=== PATIENT | male | born 1955 | race Caucasian/White ===

== ENCOUNTER 2018-06-27 15:42 | Outpatient (CLI) | payer BC ==
--- NOTE | 2018-06-27 17:06 | RAD ---
2 VIEWS RIGHT HIP: Date: 06/27/18 COMPARISON: None. HISTORY: Right hip pain for a week. FINDINGS: Two views of the right hip show no evidence of acute fracture or dislocation. No degenerative changes are seen. IMPRESSION: Unremarkable exam. POS: [facility]
== END 2018-06-27 15:43 | disposition home or self-care (01) ==
LOC: SCSRAD 15:42
PROVIDERS: ATTEND Family Medicine
DX: M25.551 Pain in right hip (principal)

== ENCOUNTER 2021-12-19 17:51 | Inpatient (IN) | payer MEDICARE, BC ==
[~2021-12-19 17:51] MED LIST: Fentanyl 250 MCG/5 ML VIAL ONE
[2021-12-19] MEDS ORDERED: Sodium Chloride 0.9% 0 ML ONE (18:14)
[2021-12-19] MEDS ORDERED: Piperacillin/Tazobactam 3.375 GM VIAL ONE (18:14)
[2021-12-19] MEDS ORDERED: PROPOFOL 200 MG/20 ML VIAL ONE (18:22)
[2021-12-19] MEDS ORDERED: Rocuronium Bromide 10 MG/ML (10ML VIAL) ONE (18:22)
[2021-12-19] MEDS ORDERED: Glycopyrrolate 0.2 MG/ML 5 ML SYRINGE ONE (18:22)
[2021-12-19] MEDS ORDERED: Lidocaine 1% PF 5 ML VIAL ONE (18:22)
[2021-12-19] MEDS ORDERED: Dexamethasone 20 MG/5 ML VIAL ONE (18:22)
[2021-12-19] MEDS ORDERED: Ondansetron PF 4 MG/2 ML Vial ONE (18:22)
[2021-12-19] MEDS ORDERED: Promethazine HCl 25 MG/ML VIAL IM PRN ×2 (18:45→18:46)
[2021-12-19] MEDS ORDERED: Ondansetron HCl/PF 4 MG/2 ML Vial IVP PRN (18:45)
[2021-12-19] MEDS ORDERED: HYDROmorphone 2 MG/ML VIAL SLOW IVP PRN (18:45)
[2021-12-19] MEDS ORDERED: Promethazine HCl 25 MG/ML VIAL IVPB PRN (18:45)
[2021-12-19] MEDS ORDERED: diphenhydrAMINE 50 MG/ML VIAL IM PRN (18:46)
[2021-12-19] MEDS ORDERED: diphenhydrAMINE 25 MG CAP PO PRN (18:46)
[2021-12-19] MEDS ORDERED: diphenhydrAMINE 50 MG/ML VIAL IVP PRN (18:46)
[2021-12-19] MEDS ORDERED: Ondansetron PF 4 MG/2 ML Vial IVP PRN ×2 (18:46→20:16)
[2021-12-19] MEDS ORDERED: Naloxone HCl 0.4 mg/ml Vial IV PRN (18:46)
[2021-12-19] MEDS ORDERED: Zolpidem Tartrate 5 MG TAB PO PRN (18:46)
[2021-12-19] MEDS ORDERED: fentaNYL Citrate/PF 2,000 MCG in Sodium Chloride 0.9% 60 ML IV PRN (18:46)
[2021-12-19] MEDS ORDERED: Communication Order-Pharmacy FS SCH (19:00)
[2021-12-19] MEDS ORDERED: hydrALAZINE 20 MG/ML VIAL SLOW IVP PRN (20:16)
[2021-12-19] MEDS ORDERED: Ketorolac Tromethamine 30 MG/ML VIAL IVP SCH (20:30)
[2021-12-19] MEDS ORDERED: Fentanyl 100 MCG/2 ML VIAL ONE (20:57)
[2021-12-19] MEDS ORDERED: Ketorolac Tromethamine 30 MG/ML VIAL ONE (21:19)
[2021-12-19 22:14] VITALS: BMI 29.7
[2021-12-19] MEDS: Enoxaparin Sodium 40 MG/0.4 ML SYRINGE SC SCH (22:28)
[2021-12-19] MEDS: Lactated Ringer's 1,000 ML IV SCH ×2 (22:28→22:36)
[2021-12-19] MEDS: Piperacillin/Tazobactam 3.375 GM in Sodium Chloride 0.9% 100 ML IVPB SCH (22:36)
[2021-12-19] MEDS: Ketorolac Tromethamine 30 MG/ML VIAL IVP SCH (23:13)
[2021-12-20] MEDS: Piperacillin/Tazobactam 3.375 GM in Sodium Chloride 0.9% 100 ML IVPB SCH ×3 (05:00→20:56)
[2021-12-20] MEDS: Ketorolac Tromethamine 30 MG/ML VIAL IVP SCH ×4 (05:00→23:33)
[2021-12-20 05:57] LABS: #Lymphocytes 0.4 thou/uL (1.20-3.40); #Monocytes 0.9 thou/uL (0.11-0.59); #Neutrophils 11.5 thou/uL (1.40-6.50); %Eosinophils 0.2 % (0.0-10.0); %Lymphocytes 3.1 % (21.0-51.0); %Monocytes 6.6 % (0.0-10.0); %Neutrophils 90.1 % (42.0-75.0); Hemoglobin 15.3 g/dL (14.0-18.0); Mean Corpuscular HGB CONC 32.4 g/dL (32.0-36.0); Mean Corpuscular Hemoglobin 29.2 pg (27.0-31.0); Mean Corpuscular Volume 90.4 fL (78.0-98.0); Mean Platelet Volume 6.7 fL (7.4-10.4); Platelet Count 365 thou/uL (130-400); RBC Distribution Width 12.2 % (11.5-14.5); Red Blood Cell (RBC) Count 5.23 mill/uL (4.70-6.10); White Blood Cell (WBC) Count 12.7 thou/uL (4.8-10.8)
[2021-12-20 06:16] LABS: ALT (SGPT) 18 U/L (8-55); AST (SGOT) 15 U/L (5-34); Albumin 3.3 g/dL (3.4-4.8); Alkaline Phosphatase 95 U/L (40-110); Anion Gap 14 mmol/L (10-20); BUN (Urea Nitrogen) 13 mg/dL (8.4-25.7); Bilirubin, Total 1.6 mg/dL (0.2-1.2); Calc. Creatinine Clearance 133 mL/min (70-130); Calcium 8.7 mg/dL (7.8-10.44); Carbon Dioxide 23 mmol/L (23-31); Chloride 99 mmol/L (98-107); Globulin 2.8 g/dL (2.4-3.5); Glucose 172 mg/dL (80-115); Potassium 4.3 mmol/L (3.5-5.1); Protein, Total 6.1 g/dL (5.8-8.1); Sodium 132 mmol/L (136-145)
[2021-12-20] MEDS: Pantoprazole 40 MG VIAL IVP SCH (08:15)
[2021-12-20] MEDS: Lactated Ringer's 1,000 ML IV SCH (10:21)
[2021-12-20] MEDS ORDERED: Sodium Chloride 0.9% 1,000 ML IV SCH (11:15)
[2021-12-20] MEDS: Sodium Chloride 0.9% 1,000 ML IV SCH ×2 (13:06→20:54)
[2021-12-20] MEDS: Enoxaparin Sodium 40 MG/0.4 ML SYRINGE SC SCH (20:54)
[2021-12-21] MEDS: Sodium Chloride 0.9% 1,000 ML IV SCH ×2 (04:14→08:34)
[2021-12-21 05:51] LABS: #Lymphocytes 0.7 thou/uL (1.20-3.40); #Monocytes 1.2 thou/uL (0.11-0.59); #Neutrophils 10.5 thou/uL (1.40-6.50); %Eosinophils 0.3 % (0.0-10.0); %Lymphocytes 5.9 % (21.0-51.0); %Monocytes 9.4 % (0.0-10.0); %Neutrophils 84.4 % (42.0-75.0); Hemoglobin 12.3 g/dL (14.0-18.0); Mean Corpuscular HGB CONC 32.6 g/dL (32.0-36.0); Mean Corpuscular Hemoglobin 29.6 pg (27.0-31.0); Mean Corpuscular Volume 90.7 fL (78.0-98.0); Mean Platelet Volume 6.5 fL (7.4-10.4); Platelet Count 332 thou/uL (130-400); RBC Distribution Width 12.1 % (11.5-14.5); Red Blood Cell (RBC) Count 4.14 mill/uL (4.70-6.10); White Blood Cell (WBC) Count 12.5 thou/uL (4.8-10.8)
[2021-12-21 06:19] LABS: ALT (SGPT) 15 U/L (8-55); AST (SGOT) 14 U/L (5-34); Albumin 3.2 g/dL (3.4-4.8); Alkaline Phosphatase 76 U/L (40-110); Anion Gap 12 mmol/L (10-20); BUN (Urea Nitrogen) 15 mg/dL (8.4-25.7); Bilirubin, Total 1.3 mg/dL (0.2-1.2); Calc. Creatinine Clearance 130 mL/min (70-130); Calcium 8.7 mg/dL (7.8-10.44); Carbon Dioxide 25 mmol/L (23-31); Chloride 103 mmol/L (98-107); Globulin 2.6 g/dL (2.4-3.5); Glucose 124 mg/dL (80-115); Potassium 3.5 mmol/L (3.5-5.1); Protein, Total 5.8 g/dL (5.8-8.1); Sodium 136 mmol/L (136-145)
[2021-12-21] MEDS: Ketorolac Tromethamine 30 MG/ML VIAL IVP SCH ×3 (06:35→17:18)
[2021-12-21] MEDS: Piperacillin/Tazobactam 3.375 GM in Sodium Chloride 0.9% 100 ML IVPB SCH ×3 (06:35→20:50)
[2021-12-21] MEDS: Pantoprazole 40 MG VIAL IVP SCH (08:32)
[2021-12-21] MEDS: Potassium Chloride 20 MEQ in Lactated Ringer's 1,000 ML IV SCH (11:46)
[2021-12-21] MEDS: Enoxaparin Sodium 40 MG/0.4 ML SYRINGE SC SCH (20:48)
[2021-12-22] MEDS: Ketorolac Tromethamine 30 MG/ML VIAL IVP SCH ×5 (00:13→23:20)
[2021-12-22] MEDS: Potassium Chloride 20 MEQ in Lactated Ringer's 1,000 ML IV SCH ×3 (01:28→10:04)
[2021-12-22] MEDS: Piperacillin/Tazobactam 3.375 GM in Sodium Chloride 0.9% 100 ML IVPB SCH ×3 (05:30→20:59)
[2021-12-22] MEDS: Pantoprazole 40 MG VIAL IVP SCH (08:29)
[2021-12-22] MEDS: Enoxaparin Sodium 40 MG/0.4 ML SYRINGE SC SCH (19:57)
[2021-12-23] MEDS: Potassium Chloride 20 MEQ in Lactated Ringer's 1,000 ML IV SCH ×2 (04:08→19:34)
[2021-12-23] MEDS: Ketorolac Tromethamine 30 MG/ML VIAL IVP SCH ×2 (06:07→11:56)
[2021-12-23] MEDS: Piperacillin/Tazobactam 3.375 GM in Sodium Chloride 0.9% 100 ML IVPB SCH ×3 (06:08→21:01)
[2021-12-23] MEDS: Pantoprazole 40 MG VIAL IVP SCH (08:39)
[2021-12-23] MEDS ORDERED: Lidocaine 1% w/Epinephrine 1:200K 30 ML VIAL FS SCH (10:45)
[2021-12-23] MEDS ORDERED: Bupivacaine 0.25% HCL 30 ML VIAL FS SCH (10:45)
[2021-12-23] MEDS ORDERED: Ibuprofen 600 MG TAB PO PRN (15:11)
[2021-12-23] MEDS ORDERED: traMADol HCl 50 MG TAB PO PRN (15:11)
[2021-12-23] MEDS ORDERED: Acetaminophen 500 MG TAB PO PRN (15:11)
[2021-12-23] MEDS ORDERED: Morphine 4 MG/ML VIAL SLOW IVP PRN (15:11)
[2021-12-23] MEDS ORDERED: Acetaminophen 500 MG TAB PO SCH (15:15)
[2021-12-23] MEDS: Enoxaparin Sodium 40 MG/0.4 ML SYRINGE SC SCH (21:01)
[2021-12-24] MEDS: Piperacillin/Tazobactam 3.375 GM in Sodium Chloride 0.9% 100 ML IVPB SCH (05:04)
[2021-12-24] MEDS ORDERED: Bupivacaine 0.25% HCL 30 ML VIAL FS SCH (06:00)
[2021-12-24] MEDS ORDERED: Lidocaine 1% w/Epinephrine 1:200K 30 ML VIAL FS SCH (06:00)
[2021-12-24 08:09] VITALS: BP 150/73; TEMP 98.8
== END 2021-12-24 11:27 | disposition home or self-care (01) | DRG 329 ==
LOC: SDC/OP 17:51 → SURG B 21:39
PROVIDERS: ADMIT Specialist; ATTEND Specialist
PROC: 0DBF0ZZ Excision of Right Large Intestine, Open Approach (ICD-10-PCS; principal; 2021-12-19)
PROC: 0DBB0ZZ Excision of Ileum, Open Approach (ICD-10-PCS; 2021-12-19)
PROC: 0JQ80ZZ Repair Abdomen Subcutaneous Tissue and Fascia, Open Approach (ICD-10-PCS; 2021-12-24)
DX: K63.1 Perforation of intestine (nontraumatic) (principal); K35.32 Acute appendicitis with perforation, localized peritonitis, and gangrene, without abscess; K56.7 Ileus, unspecified; M10.9 Gout, unspecified; Z79.899 Other long term (current) drug therapy; Z98.890 Other specified postprocedural states
CPT/HCPCS: 36415; 80053; 85025; 88307; C1776; C9113; J1100; J1650; J1885; J2270; J2405; J2543; J2704; J3010; J3480; J3490; J7050; J7120; S0020

== ENCOUNTER 2022-01-13 08:42 | Day surgery (SDC) | payer MEDICARE, BC ==
[2022-01-12 16:14] VITALS: BMI 27.1
[2022-01-13] MEDS ORDERED: Sodium Bicarbonate 2.5 MEQ/5 ML VIAL ONE (09:39)
[2022-01-13] MEDS ORDERED: Lidocaine 1% PF 5 ML VIAL ONE (09:39)
[2022-01-13] MEDS ORDERED: Fentanyl 100 MCG/2 ML VIAL ONE (09:58)
[2022-01-13] MEDS ORDERED: Midazolam HCl 2 mg/2 ml Vial ONE (09:59)
[2022-01-13 10:07] VITALS: BP 125/86; TEMP 97.9
[2022-01-13] MEDS ORDERED: Amoxicillin/Potassium Clav 875 MG TAB PO SCH (12:15)
[2022-01-13 12:28] LABS: Body Fluid Source Abscess Fluid; Clarity Cloudy/Turbid (Clear); Tube # EDTA
[2022-01-13 12:29] LABS: BF Color Gray
== END 2022-01-13 12:55 | disposition home or self-care (01) ==
LOC: CT 08:42
PROVIDERS: ATTEND Specialist
PROC: 0W9H3ZX Drainage of Retroperitoneum, Percutaneous Approach, Diagnostic (ICD-10-PCS; principal; 2022-01-13)
DX: K65.1 Peritoneal abscess (principal); Z79.2 Long term (current) use of antibiotics; Z79.899 Other long term (current) drug therapy; Z90.49 Acquired absence of other specified parts of digestive tract; I71.4 Abdominal aortic aneurysm, without rupture
CPT/HCPCS: 49020; 49406; 77012; 87070; 87077; 87186; 87205; C1729; 36415; 80048; 85025; 85060; 85610; 89051; J2250; J3010

== ENCOUNTER 2022-01-15 10:32 | Outpatient (CLI) | payer MEDICARE, BC ==
[2022-01-15] MEDS ORDERED: Iopamidol 370 76% 100 ML VIAL ONE (16:05)
[2022-01-15] MEDS ORDERED: GASTROGRAFIN 30 ML BOT ONE (16:05)
== END 2022-01-15 10:33 | disposition home or self-care (01) ==
LOC: CT 10:32
PROVIDERS: ATTEND Specialist
DX: K65.1 Peritoneal abscess (principal)
CPT/HCPCS: 74177

== ENCOUNTER 2023-05-05 08:20 | Outpatient (CLI) | payer MEDICARE, BC ==
[2023-05-05] MEDS ORDERED: Iopamidol-370 76% 500 ML MDV (1 ML CHARGE) ONE (14:54)
== END 2023-05-05 08:21 | disposition home or self-care (01) ==
LOC: BICCT 08:20
PROVIDERS: ATTEND Surgery
DX: K43.2 Incisional hernia without obstruction or gangrene (principal); K43.9 Ventral hernia without obstruction or gangrene; K46.9 Unspecified abdominal hernia without obstruction or gangrene
CPT/HCPCS: 74177; 82565; Q9967

== ENCOUNTER 2023-06-21 11:03 | Outpatient (CLI) | payer MEDICARE, BC ==
[2023-06-21 14:36] LABS: #Basophils 0.1 10x3/uL (0.0-0.2); #Eosinphils 0.3 10x3/uL (0.0-0.5); #Monocytes 0.7 10x3/uL (0.0-1.1); #Neutrophils 5.1 10x3/uL (1.5-8.4); %Basophils 0.9 % (0.0-2.0); %Lymphocytes 25.5 % (18.0-47.0); %Monocytes 8.3 % (0.0-10.0); %Neutrophils 60.4 % (40.0-75.0); Hematocrit 47.4 % (38.8-50.0); Hemoglobin 15.7 g/dL (13.5-17.5); Mean Corpuscular HGB CONC 33.1 g/dL (32.0-36.0); Mean Corpuscular Hemoglobin 28.5 pg (27.0-33.0); Mean Platelet Volume 9.5 fl (7.4-10.4); Platelet Count 242 10x3/uL (150-450); RBC Distribution Width 12.9 % (11.5-14.5); Red Blood Cell (RBC) Count 5.51 10x6/uL (4.32-5.72); White Blood Cell (WBC) Count 8.4 10x3/uL (3.5-10.5)
[2023-06-21 15:59] LABS: Anion Gap 19 mmol/L (10-20); BUN (Urea Nitrogen) 13 mg/dL (8.4-25.7); Calc. Creatinine Clearance 0 mL/min (70-130); Calcium 9.1 mg/dL (7.8-10.44); Carbon Dioxide 21 mmol/L (23-31); Chloride 105 mmol/L (98-107); Estimated GFR 96; Glucose 88 mg/dL (80-115); Sodium 141 mmol/L (136-145)
== END 2023-06-21 11:04 | disposition home or self-care (01) ==
LOC: LABBT 11:03
PROVIDERS: ATTEND Surgery
DX: Z01.818 Encounter for other preprocedural examination (principal); K43.2 Incisional hernia without obstruction or gangrene
CPT/HCPCS: 80048; 85025; 93005; 93010

== ENCOUNTER 2023-06-23 07:24 | Inpatient (IN) | payer MEDICARE, BC ==
[2023-06-21 12:01] VITALS: BMI 29.8
[2023-06-23] MEDS ORDERED: EPINEPHrine 1 MG/ML VIAL ONE (09:29)
[2023-06-23] MEDS ORDERED: Bupivacaine 0.25% HCL 30 ML VIAL ONE (09:29)
[2023-06-23] MEDS ORDERED: fentaNYL PF 100 MCG/2 ML SYRINGE ONE (10:21)
[2023-06-23] MEDS ORDERED: SUGAMMADEX SODIUM 200 MG/2 ML VIAL ONE (10:34)
[2023-06-23] MEDS ORDERED: CEFAZOLIN 2 GM VIAL ONE (10:39)
[2023-06-23] MEDS ORDERED: Sodium Chloride 0.9% 100 ML ONE (10:39)
[2023-06-23] MEDS ORDERED: Rocuronium Bromide 10 MG/ML (10ML VIAL) ONE (10:55)
[2023-06-23] MEDS ORDERED: Lidocaine 1% PF 5 ML VIAL ONE (10:55)
[2023-06-23] MEDS ORDERED: Ondansetron PF 4 MG/2 ML Vial ONE (10:55)
[2023-06-23] MEDS ORDERED: Dexamethasone 20 MG/5 ML VIAL ONE (10:55)
[2023-06-23] MEDS ORDERED: Ketorolac Tromethamine 30 MG/ML VIAL ONE (10:55)
[2023-06-23] MEDS ORDERED: PROPOFOL 200 MG/20 ML VIAL ONE (10:55)
[2023-06-23] MEDS ORDERED: ePHEDrine Sulfate 50 MG/10 ML VIAL ONE (10:55)
[2023-06-23] MEDS ORDERED: Vecuronium 10 MG VIAL ONE (10:55)
[2023-06-23] MEDS ORDERED: FENTANYL 500 MCG/10 ML VIAL 2,000 MCG in Sodium Chloride 0.9% 60 ML IV PRN (14:04)
[2023-06-23] MEDS ORDERED: diphenhydrAMINE 50 MG/ML VIAL IM PRN (14:04)
[2023-06-23] MEDS ORDERED: Naloxone HCl 0.4 mg/ml Vial IV PRN (14:04)
[2023-06-23] MEDS ORDERED: Promethazine HCl 25 MG/ML VIAL IM PRN ×3 (14:04→17:45)
[2023-06-23] MEDS ORDERED: Ondansetron HCl/PF 4 MG/2 ML Vial IVP PRN (14:04)
[2023-06-23] MEDS ORDERED: diphenhydrAMINE 50 MG/ML VIAL IVP PRN (14:04)
[2023-06-23] MEDS ORDERED: diphenhydrAMINE 25 MG CAP PO PRN (14:04)
[2023-06-23] MEDS ORDERED: Ondansetron PF 4 MG/2 ML Vial IVP PRN ×2 (14:04→17:45)
[2023-06-23] MEDS ORDERED: ACTIVE PCA FS PRN (14:15)
[2023-06-23] MEDS ORDERED: Ipratropium/Albuterol 3 ML NEB NEB PRN (17:45)
[2023-06-23] MEDS ORDERED: Glucagon 1 MG/ML KIT IM PRN (17:45)
[2023-06-23] MEDS ORDERED: Acetaminophen 325 MG TAB PO PRN (17:45)
[2023-06-23] MEDS ORDERED: Dextrose 50% Abboject 50 ML SYRINGE SLOW IVP PRN (17:45)
[2023-06-23] MEDS ORDERED: D5 1/2 NS w/20 mEq KCL 1,000 ML IV SCH (17:45)
[2023-06-23] MEDS ORDERED: Dextrose 5% in Water 1,000 ML IV PRN (17:45)
[2023-06-23] MEDS ORDERED: hydrALAZINE 20 MG/ML VIAL SLOW IVP PRN (17:45)
[2023-06-23] MEDS: Famotidine 20 MG TAB PO SCH (19:56)
[2023-06-23] MEDS: Famotidine/PF 20 mg/2ml Vial SLOW IVP SCH (19:56)
[2023-06-24 05:16] LABS: #Monocytes 1.4 thou/uL (0.11-0.59); #Neutrophils 15.7 thou/uL (1.40-6.50); %Basophils 0.1 % (0.0-1.0); %Lymphocytes 5.8 % (21.0-51.0); %Monocytes 7.8 % (0.0-10.0); %Neutrophils 85.6 % (42.0-75.0); Hematocrit 41.2 % (42.0-52.0); Hemoglobin 13.8 g/dL (14.0-18.0); Mean Corpuscular HGB CONC 33.5 g/dL (32.0-36.0); Mean Corpuscular Hemoglobin 29.3 pg (27.0-31.0); Mean Corpuscular Volume 87.5 fl (78.0-98.0); Mean Platelet Volume 9.4 fL (7.4-10.4); Platelet Count 233 10x3/uL (130-400); RBC Distribution Width 13.1 % (11.5-14.5); Red Blood Cell (RBC) Count 4.71 mill/uL (4.70-6.10); White Blood Cell (WBC) Count 18.3 10x3/uL (4.8-10.8)
[2023-06-24 05:20] VITALS: TEMP 98.3
[2023-06-24] MEDS: Famotidine/PF 20 mg/2ml Vial SLOW IVP SCH (09:41)
[2023-06-24] MEDS: Famotidine 20 MG TAB PO SCH (09:57)
[2023-06-24] MEDS ORDERED: HYDROcodone/Acetaminophen 10/325 mg Tablet PO PRN ×2 (10:48)
[2023-06-24] MEDS ORDERED: fentaNYL 50 mcg/mL 1 mL Vial SLOW IVP PRN (10:49)
[2023-06-24 11:38] VITALS: BP 132/77
== END 2023-06-24 14:06 | disposition home or self-care (01) | DRG 355 ==
LOC: SDC 07:24 → SURG B 17:37
PROVIDERS: ADMIT Surgery; ATTEND Surgery
PROC: 0WUF0JZ Supplement Abdominal Wall with Synthetic Substitute, Open Approach (ICD-10-PCS; principal; 2023-06-24)
PROC: 0WJF4ZZ Inspection of Abdominal Wall, Percutaneous Endoscopic Approach (ICD-10-PCS; 2023-06-24)
PROC: 8E0W4CZ Robotic Assisted Procedure of Trunk Region, Percutaneous Endoscopic Approach (ICD-10-PCS; 2023-06-24)
DX: K43.9 Ventral hernia without obstruction or gangrene (principal); M62.08 Separation of muscle (nontraumatic), other site; K66.0 Peritoneal adhesions (postprocedural) (postinfection); Z90.49 Acquired absence of other specified parts of digestive tract
CPT/HCPCS: 36415; 80048; 85025; 93005; 93010; A4314; C1781; J0171; J1100; J1885; J2405; J2704; J3010; J3490; S0020